=== PATIENT | female | born 1985 | race African-American/Black ===

== ENCOUNTER 2016-06-14 09:02 | Inpatient (IN) | payer OTHER ==
[2016-06-14] MEDS ORDERED: CITRIC ACID/SODIUM CITRATE 30 ML UNIT-DOSE CUP PO ONE (09:30)
[2016-06-14] MEDS ORDERED: AMPICILLIN 2 GM/100 ML BAG (PRE-DOCKED) IVPB ONE (09:30)
[2016-06-14] MEDS ORDERED: ELECTROLYTE-148 SOLN 500 ML IV SCH ×2 (09:30→10:00)
[2016-06-14 10:20] VITALS: BMI 30.9
[2016-06-14 10:41] LABS: BASOPHIL 0.6 % (0-2.0); CALCIUM 8.3 mg/dL (8.5-10.1); CREATININE 0.5 mg/dL (0.55-1.02); EOSINOPHIL 0.2 % (0-4.5); MCH 26.8 pg (25.7-33.7); MCHC 32.5 g/dl (32.0-36.0); MEAN CELL VOLUME 82.5 fl (80-96); MEAN PLT VOLUME 9.7 fl (7.5-11.1); NEUTROPHILS 75.4 % (42.8-82.8); PLATELET COUNT 190 K/MM3 (134-434); RDW 13.6 % (11.6-15.6)
[2016-06-14] MEDS ORDERED: ELECTROLYTE-148 SOLN 1,000 ML IV SCH (11:15)
--- NOTE | 2016-06-14 11:18 | HP ---
Past Medical History - Admission Chief Complaint: Rupture of membrane History of Present Illness: 31 yo @ 35 weeks gestation, presents c/o rupture of membrane. She had 2 previous and one prior delivery. She's now Pre op for repeat . History Source: Patient Limitations to Obtaining History: No Limitations - Past Medical History ...: 4 ...Para: 2 ...Term: 2 ...: 1 ...Spon : 0 ...Induced : 1 ...Multiple Gestation: 0 ...LMP: 10/08/15 ... Weeks Gestation by Dates: 35.5 ...EDC by Dates: 07/14/16 ...EDC by Sono: 07/16/16 - Past Surgical History Past Surgical History: Yes: None Hx Myomectomy: No Hx Transabdominal Cerclage: No - Smoking History Smoking history: Never smoked Have you smoked in the past 12 months: No If you are a former smoker, when did you quit?: 2 months - Alcohol/Substance Use Hx Alcohol Use: No - Social History History of Recent Travel: No Home Medications - Allergies Allergies/Adverse Reactions: Allergies Allergy/AdvReac Type Severity Reaction Status Date / Time No Known Allergies Allergy Verified 06/14/16 10:02 - Home Medications Home Medications: Ambulatory Orders Ferrous Sulfate [Feosol] 325 mg PO Q2D 06/14/16 Vit/Iron Fumarate/FA [ Tablet] 1 tab PO DAILY 06/14/16 Ibuprofen [Motrin -] 600 mg PO TID #21 tablet 06/18/16 Family Disease History - Family Disease History Family History: Unremarkable Review of Systems - Review of Systems Constitutional: reports: No Symptoms Eyes: reports: No Symptoms HENT: reports: No Symptoms Neck: reports: No Symptoms Cardiovascular: reports: No Symptoms Respiratory: reports: No Symptoms Gastrointestinal: reports: No Symptoms Genitourinary: reports: Other (Leakage of fluid) Breasts: reports: No Symptoms Reported Musculoskeletal: reports: No Symptoms Integumentary: reports: No Symptoms Neurological: reports: No Symptoms Endocrine: reports: No Symptoms Hematology/Lymphatic: reports: No Symptoms Psychiatric: reports: No Symptoms Pain Intensity: 5 Physical Exam - Maternity Vital Signs: Vital Signs Temperature 97.7 F 06/14/16 10:09 Pulse Rate 84 06/14/16 10:09 Respiratory Rate 18 06/14/16 10:09 Blood Pressure 130/72 06/14/16 10:09 O2 Sat by Pulse Oximetry (%) Eyes: Yes: WNL Neck: Yes: Supple Cardiovascular: Yes: Regular Rate and Rhythm Lungs: Clear to auscultation - Abdominal Exam/OB Number of Fetuses: Single Presentation: Vertex Contractions: Yes Regularity: Regular Intensity: Mild/Mod - Vaginal Exam/OB Vaginal Bleediing: No Dilatation (cm): 4 Effacement (%): 60 Amniotic Membrane Status: Ruptured Amniotic Fluid: Yes: Clear Presentation: Vertex/Position Station: -2 - Physical Exam ...Motor Strength: WNL Psychiatric: Yes: Alert, Oriented - Labs Lab Results: CBC, BMP 06/14/16 09:45 06/14/16 09:45 Problem List - Problems (1) Previous section complicating , antepartum condition or complication Code(s): O34.219 - MATERNAL CARE FOR UNSP TYPE SCAR FROM PREVIOUS DEL (2) Rupture of membranes with clear amniotic fluid Code(s): O42.019 - PRETRM BETHANY ROM, ONSET LABOR W/N 24 HOURS OF RUPT, UNSP TRI Assessment/Plan PPROM Previous Pre op for Consent signed Anesthesia to see Patient
[2016-06-14] MEDS ORDERED: morphine SULFATE/Preservative Free 0.5 MG/ML (1cc Syringe) SPIN ONE (11:21)
[2016-06-14 11:51] LABS: HIV 1 & 2 AB NEGATIVE; HIV 1 AGp24 NEGATIVE
[2016-06-14] MEDS ORDERED: ONDANSETRON 4 MG/2 ML VIAL IVPB PRN (12:40)
[2016-06-14] MEDS ORDERED: METHYLERGONOVINE MALEATE 0.2 MG/1 ML AMP IM PRN (12:41)
[2016-06-14] MEDS ORDERED: IBUPROFEN 600 MG TABLET (FP) PO PRN (12:41)
--- NOTE | 2016-06-14 12:43 | PN ---
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
--- NOTE | 2016-06-14 12:44 | OP ---
Operative Note - Note: Operative Date: 06/14/16 Pre-Operative Diagnosis: PPROM Operation: Repeat Findings: Baby boy in LOT position Post-Operative Diagnosis: Same as Pre-op Surgeon: Norma Tejada Stopper Setter: Jose Manuel Padilla Anesthesia: Spinal Specimens Removed: Placenta Estimated Blood Loss (mls): 500 Operative Report Dictated: Yes
[2016-06-14] MEDS ORDERED: IBUPROFEN 800 MG/8 ML IJ IVPB PRN (12:50)
[2016-06-14] MEDS: D5W-LR W/ 20 UNITS OXYTOCIN 1,000 ML IV SCH ×2 (13:00→20:59)
[2016-06-14] MEDS: ACETAMINOPHEN 325 MG TABLET (FP) PO PRN ×2 (13:45→18:26)
[2016-06-14] MEDS ORDERED: PROMETHAZINE HCL 25 MG/1 ML VIAL IVPB PRN (14:05)
[2016-06-14] MEDS ORDERED: DEXAMETHASONE SOD PHOSPHATE 4 MG/1 ML VIAL IVPUSH PRN (14:05)
[2016-06-14] MEDS ORDERED: HYDROmorphone *PCA* 10MG/50ML DISP.SYRIN PCA SCH (14:15)
[2016-06-14] MEDS ORDERED: PCA PUMP KEY 1 EACH EACH ONE (17:08)
--- NOTE | 2016-06-14 18:00 | OP ---
DATE OF OPERATION: 06/14/2016 PREOPERATIVE DIAGNOSIS: Previous section with premature rupture of membrane. POSTOPERATIVE DIAGNOSIS: Previous section with premature rupture of membrane. PROCEDURE: Repeat low transverse caesarean section. SURGEON: Shakir Tejada MD ELECTRIC TRUCK OPERATOR: TINO Valverde ANESTHESIA: Spinal attempt then general. ESTIMATED BLOOD LOSS: 500 mL. PROCEDURE IN DETAIL: The patient was taken to the operating room where spinal anesthesia was attempted. Since spinal anesthesia did not work, general anesthesia was undertaken. The patient was then prepped and draped in proper sterile fashion. A Pfannenstiel skin incision was made and carried down to the underlying layer of fascia. The fascia was incised in the midline and extended laterally. The inferior aspect of the fascial incision was then grasped with the Katarina clamp, elevated and the rectus muscles dissected of bluntly. Attention was then turned to the superior aspect of the fascial incision which in a similar fashion was then grasped with the Katarina clamp, elevated and the rectus muscle dissected of bluntly. The rectus muscle was then in the midline. The peritoneum identified and entered sharply with the Metzenbaum scissors. The incision was extended superior and inferiorly with good visualization of the bladder. The vesicouterine peritoneum was then grasped with a pickup and entered sharply with the Metzenbaum scissors. This incision was extended laterally and a bladder flap created digitally. The lower uterine segment was incised using a 10 blade. The head was then delivered atraumatically. Nose and mouth were suction and the cord clamped and cut. The was handed to the awaiting reed fixer. The placenta was then removed manually. The uterus was exteriorized and cleared of all clots and debris. The uterine incision was repaired with 0-Biosyn in a running locked fashion. A 2nd layer of the same suture was used as a means to provide excellent hemostasis. Then, the pelvis was completely irrigated. The uterus was returned to the abdomen. The peritoneum was closed using 2-0 Biosyn. The fascia was reapproximated using 0 Vicryl in a running fashion and the skin was closed with quincy. The patient tolerated the procedure well. The patient was then taken to the PACU instable condition. Pathology placenta. MARIELOS TEJADA M.D. [id number] MTDD
[2016-06-15 07:53] LABS: BASOPHIL 0.5 % (0-2.0); EOSINOPHIL 0.3 % (0-4.5); MCH 27.5 pg (25.7-33.7); MCHC 33.4 g/dl (32.0-36.0); MEAN CELL VOLUME 82.2 fl (80-96); MEAN PLT VOLUME 9.5 fl (7.5-11.1); NEUTROPHILS 73.3 % (42.8-82.8); PLATELET COUNT 160 K/MM3 (134-434); RDW 13.4 % (11.6-15.6); WHITE BLOOD COUNT 10.1 K/mm3 (4.0-10.0)
--- NOTE | 2016-06-15 08:15 | PN ---
Progress Note (short form) - Note Progress Note: Post op day#1.S/P C section under Ga uneventful.Patient had a spinal anesthesia but did not get a level so was converted to GA.Patient stabel on Dilaudid FIELD INTERVIEWER and c/o pain score of 4-5/10.Will continue FIELD INTERVIEWER today and also put patient on caldolor.Will f/u.
--- NOTE | 2016-06-15 08:32 | PN ---
Post Progress Note - Subjective Subjective: 31 yo Para 3 status post repeat , seen and evaluated. She c/o incision pain. Post Day: 1 Type of Delivery: Repeat C/S Vital Signs: Vital Signs Temperature 98.1 F 06/15/16 06:00 Pulse Rate 69 06/15/16 06:00 Respiratory Rate 18 06/15/16 06:00 Blood Pressure 115/56 06/15/16 06:00 O2 Sat by Pulse Oximetry (%) 100 06/14/16 12:45 Breast Exam: Yes: Soft Uterus: Yes: Fundus Firm Incision: Yes: Dressing dry and intact Abdomen/GI: Yes: Abdomen soft Extremities: Yes: Calves non-tender Perineum: Yes: Intact Activity: Other (She's lying in bed) - Labs Labs: CBC WBC 10.1 K/mm3 (4.0-10.0) H 06/15/16 05:35 RBC 3.21 M/mm3 (3.60-5.2) L D 06/15/16 05:35 Hgb 8.8 GM/dL (10.7-15.3) L D 06/15/16 05:35 Hct 26.4 % (32.4-45.2) L D 06/15/16 05:35 MCV 82.2 fl (80-96) 06/15/16 05:35 MCHC 33.4 g/dl (32.0-36.0) 06/15/16 05:35 RDW 13.4 % (11.6-15.6) 06/15/16 05:35 Plt Count 160 K/MM3 (134-434) 06/15/16 05:35 MPV 9.5 fl (7.5-11.1) 06/15/16 05:35 Neutrophils % 73.3 % (42.8-82.8) 06/15/16 05:35 Lymphocytes % 19.9 % (8-40) 06/15/16 05:35 Monocytes % 6.0 % (3.8-10.2) 06/15/16 05:35 Eosinophils % 0.3 % (0-4.5) 06/15/16 05:35 Basophils % 0.5 % (0-2.0) 06/15/16 05:35 Problem List - Problems (1) Previous section complicating , antepartum condition or complication Code(s): O34.219 - MATERNAL CARE FOR UNSP TYPE SCAR FROM PREVIOUS DEL (2) Rupture of membranes with clear amniotic fluid Code(s): O42.019 - PRETRM BETHANY ROM, ONSET LABOR W/N 24 HOURS OF RUPT, UNSP TRI Assessment/Plan Status post repeat Stable Ambulation Analgesia PRN pain Continue routine Post op care
[2016-06-15] MEDS ORDERED: PCA PUMP KEY 1 EACH EACH ONE (09:23)
--- NOTE | 2016-06-15 10:06 | PN ---
Progress Note (short form) - Note Progress Note: Anesthesia POD#2 S/P under GA & PRESS CLEANER Patient is stable.Started po .Dilaudid PRESS CLEANER is discontinued. Due for orals medications. No complications to Dilaudid seen. Gwen White MD.
[2016-06-15] MEDS: IBUPROFEN 600 MG TABLET (FP) PO PRN ×2 (10:11→21:52)
[2016-06-15] MEDS: ACETAMINOPHEN 325 MG TABLET (FP) PO PRN ×3 (10:12→21:52)
[2016-06-15] MEDS: SIMETHICONE 80 MG TAB.CHEW (FP) PO PRN ×3 (10:13→21:51)
[2016-06-15] MEDS ORDERED: BISACODYL 10 MG SUPP.RECT RC PRN (12:41)
[2016-06-15] MEDS: diphenhydrAMINE HCL 25 MG CAPSULE (FP) PO PRN ×2 (12:47→21:50)
[2016-06-15] MEDS: oxyCODONE HCL 5 MG TABLET PO PRN ×3 (12:57→21:51)
[2016-06-15] MEDS: D5W-LR W/ 20 UNITS OXYTOCIN 1,000 ML IV SCH (19:19)
[2016-06-16] MEDS: IBUPROFEN 600 MG TABLET (FP) PO PRN ×4 (06:01→21:30)
[2016-06-16] MEDS: ACETAMINOPHEN 325 MG TABLET (FP) PO PRN ×4 (06:01→21:29)
[2016-06-16] MEDS: SIMETHICONE 80 MG TAB.CHEW (FP) PO PRN ×4 (06:02→21:29)
[2016-06-16] MEDS: oxyCODONE HCL 5 MG TABLET PO PRN ×4 (06:02→21:30)
--- NOTE | 2016-06-16 06:51 | PN ---
Post Progress Note - Subjective Subjective: 31 yo Para 4, seen and evaluated. Doing well. Post Day: 2 Type of Delivery: Repeat C/S Vital Signs: Vital Signs Temperature 98.6 F 06/15/16 22:00 Pulse Rate 78 06/15/16 22:00 Respiratory Rate 18 06/15/16 22:00 Blood Pressure 134/90 06/15/16 22:00 O2 Sat by Pulse Oximetry (%) 100 06/14/16 12:45 Breast Exam: Yes: Soft Uterus: Yes: Fundus Firm Incision: Yes: Dressing dry and intact Abdomen/GI: Yes: Abdomen soft, Tolerating PO Lochia: Yes: Rubra Lochia, amount: Small Extremities: Yes: Calves non-tender Perineum: Yes: Intact Activity: Ambulating - Labs Labs: CBC WBC 10.1 K/mm3 (4.0-10.0) H 06/15/16 05:35 RBC 3.21 M/mm3 (3.60-5.2) L D 06/15/16 05:35 Hgb 8.8 GM/dL (10.7-15.3) L D 06/15/16 05:35 Hct 26.4 % (32.4-45.2) L D 06/15/16 05:35 MCV 82.2 fl (80-96) 06/15/16 05:35 MCHC 33.4 g/dl (32.0-36.0) 06/15/16 05:35 RDW 13.4 % (11.6-15.6) 06/15/16 05:35 Plt Count 160 K/MM3 (134-434) 06/15/16 05:35 MPV 9.5 fl (7.5-11.1) 06/15/16 05:35 Neutrophils % 73.3 % (42.8-82.8) 06/15/16 05:35 Lymphocytes % 19.9 % (8-40) 06/15/16 05:35 Monocytes % 6.0 % (3.8-10.2) 06/15/16 05:35 Eosinophils % 0.3 % (0-4.5) 06/15/16 05:35 Basophils % 0.5 % (0-2.0) 06/15/16 05:35 Problem List - Problems (1) Previous section complicating , antepartum condition or complication Code(s): O34.219 - MATERNAL CARE FOR UNSP TYPE SCAR FROM PREVIOUS DEL (2) Rupture of membranes with clear amniotic fluid Code(s): O42.019 - PRETRM BETHANY ROM, ONSET LABOR W/N 24 HOURS OF RUPT, UNSP TRI Assessment/Plan Status post repeat Stable Continue ambulation Continue routine Post op care
[2016-06-17] MEDS: oxyCODONE HCL 5 MG TABLET PO PRN ×3 (06:38→21:43)
[2016-06-17] MEDS: SIMETHICONE 80 MG TAB.CHEW (FP) PO PRN ×4 (06:38→21:21)
[2016-06-17] MEDS: ACETAMINOPHEN 325 MG TABLET (FP) PO PRN ×4 (06:38→21:22)
[2016-06-17] MEDS: IBUPROFEN 600 MG TABLET (FP) PO PRN ×4 (06:39→21:21)
--- NOTE | 2016-06-17 06:51 | PN ---
Post Progress Note - Subjective Subjective: c/o pain scale 7/10 voiding without difficulty Post Day: 3 Type of Delivery: Repeat C/S Vital Signs: Vital Signs Temperature 98.2 F 06/16/16 22:00 Pulse Rate 84 06/16/16 22:00 Respiratory Rate 18 06/16/16 22:00 Blood Pressure 114/85 06/16/16 22:00 O2 Sat by Pulse Oximetry (%) 100 06/14/16 12:45 Breast Exam: Yes: Soft, Other (not BF ). No: Engorged Uterus: Yes: Fundus Firm, Fundus below umbilicus, Non-tender Incision: Yes: Roosevelt intact. No: Redness, Oozing Abdomen/GI: Yes: Abdomen soft (bm done), Tender, Passing flatus, Tolerating PO ( reg diet ). No: Abdominal Distention Lochia: Yes: Rubra Lochia, amount: Moderate Extremities: Yes: Calves non-tender Perineum: Yes: Intact Activity: Ambulating - Labs Labs: CBC WBC 10.1 K/mm3 (4.0-10.0) H 06/15/16 05:35 RBC 3.21 M/mm3 (3.60-5.2) L D 06/15/16 05:35 Hgb 8.8 GM/dL (10.7-15.3) L D 06/15/16 05:35 Hct 26.4 % (32.4-45.2) L D 06/15/16 05:35 MCV 82.2 fl (80-96) 06/15/16 05:35 MCHC 33.4 g/dl (32.0-36.0) 06/15/16 05:35 RDW 13.4 % (11.6-15.6) 06/15/16 05:35 Plt Count 160 K/MM3 (134-434) 06/15/16 05:35 MPV 9.5 fl (7.5-11.1) 06/15/16 05:35 Neutrophils % 73.3 % (42.8-82.8) 06/15/16 05:35 Lymphocytes % 19.9 % (8-40) 06/15/16 05:35 Monocytes % 6.0 % (3.8-10.2) 06/15/16 05:35 Eosinophils % 0.3 % (0-4.5) 06/15/16 05:35 Basophils % 0.5 % (0-2.0) 06/15/16 05:35 Assessment/Plan po day #3 plan discharge today.
[2016-06-17] MEDS ORDERED: oxyCODONE HCL 5 MG TABLET PO PRN ×2 (07:12→21:43)
[2016-06-17 07:29] LABS: BASOPHIL 0.6 % (0-2.0); MCH 27.6 pg (25.7-33.7); MCHC 33.2 g/dl (32.0-36.0); MEAN CELL VOLUME 83.1 fl (80-96); MEAN PLT VOLUME 8.6 fl (7.5-11.1); NEUTROPHILS 62.8 % (42.8-82.8); PLATELET COUNT 190 K/MM3 (134-434); RDW 13.4 % (11.6-15.6); WHITE BLOOD COUNT 8.1 K/mm3 (4.0-10.0)
--- NOTE | 2016-06-17 14:00 | PATH ---
Surgical Pathology Report Patient Name: HORACE APPLE Med. Rec. #: [id number] /Age/Gender: 1985 (Age: 31) / F Account: [id number] Location: [facility] OBS/AUDIOLOGY DOCTOR Taken: 06/14/2016 Received: 06/15/2016 Reported: 06/17/2016 Physicians: Norma Tejada M.D. Specimen(s) Received PLACENTA Clinical History [id number], induced x1, 35.3 weeks gestation, PROM in labor; 2005, c/section 2007 (26 weeks, breech), R/C/S 2008 Repeat c/section Final Diagnosis PLACENTA, DELIVERY: FOCALLY DISRUPTED, SMALL (<400 GM), THIRD TRIMESTER PLACENTA WITH MODERATE PREVILLOUS, PERIVILLOUS, AND PRECHORIONIC FIBRIN DEPOSITION, THREE VESSEL UMBILICAL CORD, AND PLACENTAL MEMBRANES WITH FOCAL AMNION HYPERPLASIA AND EARLY ACUTE CHORIOAMNIONITIS. Electronically Signed Ryan Aquino M.D. Gross Description The specimen is received fresh, labeled "placenta" and is a 317 gram, 15.5 x 15.0 x 2.0 cm placenta with attached membranes and umbilical cord. The attached membranes are perry, translucent with focal opacity and insert marginally. The umbilical cord measures 46 cm in length and averages 1.1 cm in diameter. The cord inserts eccentrically, 4 cm to the nearest margin. No true knots or strictures are identified. Cut surface of the umbilical cord reveals 3 vessels. The surface is esquivel-blue with fibrin deposition and appropriate caliber vessels. The maternal surface is red-brown with focal defects. Sectioning reveals red-brown, spongy parenchyma. No focal lesions are identified. Fuel House Attendant sections are submitted in three cassettes as follows: 1- membrane rolls and umbilical cord; 2-3- full thickness sections of placenta. 06/16/2016 saudi06/16/2016
[2016-06-17 21:29] VITALS: TEMP 98
[2016-06-18] MEDS: ACETAMINOPHEN 325 MG TABLET (FP) PO PRN (03:19)
[2016-06-18] MEDS: IBUPROFEN 600 MG TABLET (FP) PO PRN (03:19)
[2016-06-18] MEDS: SIMETHICONE 80 MG TAB.CHEW (FP) PO PRN (03:19)
--- NOTE | 2016-06-18 06:37 | PN ---
Post Progress Note Post Day: 4 Type of Delivery: Repeat C/S Vital Signs: Vital Signs Temperature 98.0 F 06/17/16 21:28 Pulse Rate 87 06/17/16 21:28 Respiratory Rate 20 06/17/16 21:28 Blood Pressure 130/90 06/17/16 21:28 O2 Sat by Pulse Oximetry (%) 100 06/14/16 12:45 Breast Exam: Yes: Soft Uterus: Yes: Fundus Firm Abdomen/GI: Yes: Abdomen soft Lochia, amount: Small Extremities: Yes: Calves non-tender Perineum: Yes: Intact Activity: Ambulating - Labs Labs: CBC WBC 8.1 K/mm3 (4.0-10.0) 06/17/16 07:05 RBC 3.41 M/mm3 (3.60-5.2) L 06/17/16 07:05 Hgb 9.4 GM/dL (10.7-15.3) L 06/17/16 07:05 Hct 28.3 % (32.4-45.2) L 06/17/16 07:05 MCV 83.1 fl (80-96) 06/17/16 07:05 MCHC 33.2 g/dl (32.0-36.0) 06/17/16 07:05 RDW 13.4 % (11.6-15.6) 06/17/16 07:05 Plt Count 190 K/MM3 (134-434) 06/17/16 07:05 MPV 8.6 fl (7.5-11.1) 06/17/16 07:05 Neutrophils % 62.8 % (42.8-82.8) 06/17/16 07:05 Lymphocytes % 29.0 % (8-40) D 06/17/16 07:05 Monocytes % 6.6 % (3.8-10.2) 06/17/16 07:05 Eosinophils % 1.0 % (0-4.5) D 06/17/16 07:05 Basophils % 0.6 % (0-2.0) 06/17/16 07:05 Assessment/Plan dc home today see in one week
[2016-06-18 08:32] VITALS: BP 138/88; PULSE 65
== END 2016-06-18 11:45 | disposition home or self-care (01) | DRG 540 ==
LOC: JLDR 09:02 → J3W 16:12
PROVIDERS: ADMIT Obstetrics & Gynecology; ATTEND Obstetrics & Gynecology
PROC: 10D00Z1 Extraction of Products of Conception, Low, Open Approach (ICD-10-PCS; principal; 2016-06-14)
DX: O34.211 Maternal care for low transverse scar from previous cesarean delivery (principal); O42.013 Preterm premature rupture of membranes, onset of labor within 24 hours of rupture, third trimester; Z3A.35 35 weeks gestation of pregnancy; Z37.0 Single live birth
CPT/HCPCS: 36415; 80048; 85025; 85610; 85730; 86593; 86850; 86900; 86901; 87389; 88307-TC